=== PATIENT | male | born 1990 | race African-American/Black ===

== ENCOUNTER 2023-02-13 23:37 | Emergency (ER) | payer OTHER ==
[2023-02-13 23:45] VITALS: BP 110/66; PULSE 61; RESP 18; TEMP 97.6; BMI 29.8
[2023-02-14] MEDS ORDERED: KETOROLAC TROMETHAMINE 30 MG/1 ML VIAL IM ONE (00:10)
[2023-02-14] MEDS ORDERED: ACETAMINOPHEN 500 MG TABLET (FP) PO ONE (00:10)
[2023-02-14] MEDS ORDERED: ACETAMINOPHEN 325 MG TABLET (FP) ONE (00:12)
[2023-02-14] MEDS ORDERED: KETOROLAC TROMETHAMINE 30 MG/1 ML VIAL ONE (00:12)
== END 2023-02-14 02:22 | disposition home or self-care (01) ==
LOC: JER 23:37
PROC: 3E0233Z Introduction of Anti-inflammatory into Muscle, Percutaneous Approach (ICD-10-PCS; principal; 2023-02-14)
DX: M79.661 Pain in right lower leg (principal); V49.50XA Passenger injured in collision with unspecified motor vehicles in traffic accident, initial encounter; W22.8XXA Striking against or struck by other objects, initial encounter
CPT/HCPCS: 73562-TC-RT-FY; 73590-TC-RT-FY; 99284-25

== ENCOUNTER 2024-05-11 04:29 | Emergency (ER) | payer OTHER ==
[2024-05-11 04:37] VITALS: BP 120/78; PULSE 74; RESP 20; TEMP 98.2; BMI 30.8
== END 2024-05-11 06:38 | disposition home or self-care (01) ==
LOC: JER 04:29
DX: R07.89 Other chest pain (principal); R05.9 Cough, unspecified; R09.81 Nasal congestion; Z20.822 Contact with and (suspected) exposure to COVID-19
CPT/HCPCS: 0241U-QW; 99283-25